=== PATIENT | female | born 1990 | race African-American/Black ===

== ENCOUNTER 2017-07-18 15:27 | Emergency (ER) | payer MEDICAID ==
[~2017-07-18] VITALS: Ht 149.9 cm; Wt 54.4 kg
[2017-07-18] MEDS ORDERED: HYDROcodone/Acetamin 7.5/325 tab ORAL ONE (16:00)
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
[2017-07-18] MEDS ORDERED: IBUPROFEN600 MG ORAL (17:07)
[2017-07-18] MEDS ORDERED: ROBAXIN500 MG PO (17:07)
[2017-07-18] MEDS ORDERED: LIDODERM700 M1 TOPIC (17:07)
[2017-07-18 17:22] VITALS: BP 111/70
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
== END 2017-07-18 17:22 | disposition home or self-care (01) ==
LOC: EDBD 15:27 → EMR 16:00
DX: M25.461 Effusion, right knee (principal); M79.651 Pain in right thigh; M62.830 Muscle spasm of back; V43.62XA Car passenger injured in collision with other type car in traffic accident, initial encounter; Y93.9 Activity, unspecified; Y92.410 Unspecified street and highway as the place of occurrence of the external cause
CPT/HCPCS: 99284

== ENCOUNTER 2020-06-30 22:15 | Emergency (ER) | payer MEDICAID ==
[~2020-06-30] VITALS: Ht 149.9 cm; Wt 54.4 kg
[~2020-06-30 22:15] MED LIST: IBUPROFEN600 MG ORAL; LIDODERM700 M1 TOPIC; ROBAXIN500 MG PO
--- NOTE | 2020-06-30 22:40 | NUR ---
Pte came to ER ambulatory c/o nasal congestion for 2 days and heaviness in her head. Will continue to monitor.
--- NOTE | 2020-06-30 22:43 | Emergency Room Report ---
History of Present Illness General Chief Complaint: Dyspnea/Respdistress Source: Patient Present Illness HPI Patient presents with several days (3-4) of congestion in her nose, facial fullness, ear pain. The patient is taking Sudafed, Afrin and Claritin. She is unable to move air through her nose. She denies any fevers. She tested negative for Covid today. It was a rapid PCR test. She denies any cough or wheezing. There is no chest pain. No fevers or chills. No nausea, vomiting or diarrhea. No rashes. No throat swelling. She has not taken any medication for pain. Is been several years since she has had the symptoms. She initially rated the pain 0/10 and then 10/10. It is mainly in her face. She denies change in hearing. There is decreased appetite and appreciation of smells. The discharge from her nose is clear. She has a history of sinusitis in the past. No sore throat, chest pain, palpitations, nausea, vomiting, diarrhea, dysuria, abdominal pain, shortness of breath, joint pain, rashes, depression, anxiety, visual changes, dizziness, headache. Allergies: Coded Allergies: No Known Allergies (Unverified , 07/18/17) COVID-19 Screening Contact w/high risk pt: Yes Experienced COVID-19 symptoms?: Yes COVID-19 Testing performed [place] [place]: Yes - today, rapid negative COVID-19 Screening: Negative COVID-19 COVID-19 Testing Source: nasal Patient History Past Medical History: see triage record, asthma Past Surgical History: other Social History: Denies: smoking Social History Narrative Presenting with friend Now: No Reviewed Nursing Documentation: PMH: Agreed; PSxH: Agreed Nursing Documentation-PMH Hx Asthma: Yes Review of Systems All Other Systems: negative except mentioned in HPI Physical Exam Vital Signs Date Time Temp Pulse Resp B/P (MAP) Pulse Ox O2 Delivery O2 Flow Rate FiO2 06/30/20 22:25 97.9 115 20 121/72 (88) 96 Room Air Sp02 EP Interpretation: reviewed, normal General Appearance: well appearing, no apparent distress, GCS 15, non-toxic Head: normocephalic Eyes: bilateral eye normal inspection, bilateral eye PERRL, bilateral eye EOMI ENT: normal voice, TMs + canals normal, moist mucus membranes, other - Nasal swelling with clear discharge Neck: full range of motion, supple Respiratory: lungs clear, normal breath sounds Cardiovascular #1: regular rate, rhythm Cardiovascular #2: 2+ radial (R) Gastrointestinal: normal inspection Musculoskeletal: gait/station normal Neurologic: alert, grossly normal Psychiatric: mood/affect normal Skin: no rash, warm/dry, palpation normal Medical Decision Making Diagnostic Impression: Primary Impression: Allergic rhinitis Qualified Codes: J30.9 - Allergic rhinitis, unspecified Additional Impression: Allergic sinusitis ER Course Patient presents with nasal congestion and facial discomfort. Based on exam there is no evidence of otitis media or acute bacterial or viral infection. Due to the clear discharge it is felt that this is mainly allergic in nature. The patient has been aggressive and treatment however there is still avenues to help alleviate symptoms. Specifically prednisone, Benadryl and Sudafed will be administered. It is reassuring that patient tested negative for Covid today. Discussed with patient treatment plan and assessment. Patient again rates the pain 0/10 at this time. Patient is stable for outpatient observation and treatment. Last Vital Signs Date Time Temp Pulse Resp B/P (MAP) Pulse Ox O2 Delivery O2 Flow Rate FiO2 06/30/20 23:09 98.3 76 17 97 06/30/20 23:03 123/74 Room Air Status: improved Disposition: HOME, SELF-CARE Condition: Stable Scripts Pseudoephedrine Hcl* (SUDAFED*) 60 Mg Tablet 60 MG PO Q6H, #14 TAB Prov: Roshan Bartlett MD 06/30/20 Mometasone Furoate (NASONEX) 17 Gm [place].pump 2 SPRAYS NASAL DAILY, #17 GM 0 Refills Prov: Roshan Bartlett MD 06/30/20 Chlorpheniramine Maleate (CHLOR-TRIMETON) 4 Mg Tablet 4 MG PO Q6HR PRN for congestion, #14 TAB Prov: Roshan Bartlett MD 06/30/20 Roshan Bartlett MD Jun 30, 2020 22:43
[2020-06-30] MEDS ORDERED: Pseudoephedrine 30mg tab ORAL ONE (22:45)
[2020-06-30] MEDS ORDERED: NASONEX17 GM NASAL (22:46)
[2020-06-30] MEDS ORDERED: CHLOR-TRIMETON4 MG PO (22:46)
[2020-06-30] MEDS ORDERED: PSEUDOEPHEDRINE60 MG PO (22:46)
[2020-06-30 23:03] VITALS: BP 123/74
--- NOTE | 2020-06-30 23:11 | NUR ---
Pte was discharge home as EDP ordered all instruction and prescritions were given to the patient . Pte vervalized unsdertanding . pte left the ER stable . Will continue to monitor the patient.
== END 2020-07-01 00:20 | disposition home or self-care (01) ==
LOC: EMR 22:42
DX: J30.9 Allergic rhinitis, unspecified (principal)
CPT/HCPCS: J7512; Z7502; 99282